=== PATIENT | male | born 1935 | race Caucasian/White ===

== ENCOUNTER 2018-05-13 10:05 | Emergency (ER) | payer OTHER ==
[~2018-05-13] VITALS: Ht 180.3 cm; Wt 93.0 kg
--- NOTE | 2018-05-13 11:46 | ED SKIN/ALLERGY COMPLAINT ---
History of Present Illness General Chief Complaint: Laceration Procedure Stated Complaint: CUT ON BOTTOM OF FOOT, RASH Source: patient Exam Limitations: no limitations Vital Signs & Intake/Output Vital Signs & Intake/Output Vital Signs Date Time Temp Pulse Resp B/P B/P Pulse O2 O2 Flow FiO2 Mean Ox Delivery Rate 05/13 1030 98.2 75 18 178/75 98 Room Air Allergies Coded Allergies: No Known Allergies (05/13/18) Triage Note: 82 YO MALE TO TRIAGE FOR EVAL OF L LEG LACERATION. STATES ON LABOR DAY HE WAS CARRYING A BAG WITH BOTTLES IN IT AND THE BAG BROKE AND A GLASS BOTTLE CAME OUT AND CUT HIS LEG. NOTED WITH ?RASH AROUND LACERATION SITE. UNSURE OF LAST TETANUS. Triage Nurses Notes Reviewed? yes HPI: 82 YEAR OLD MALE WITH NO MEDICAL HISTORY PRESENTS WITH PRIOR LACERATION A FEW WEEKS AGO FROM GLASS THAT CAME THROUGH A BAG. NOW THE AREAS HAS A VERY RED RASH. DOES NOT ITTCH. NO FEVER. HAD BEEN USING HYDROGEN PEROXIDE AND SILVADENE WELL WRAPS WITH MINIMAL RELIEF. PATIENT DOES NOT COMPLAIN OF ANY ISSUES SUCH PAIN, FEVER, ITCHING. (Jenny Chaidez PA-C) Reconcile Medications Hydrocortisone 1 % CREAM..G. 1 DEACON TOP BID RASH apply to affected area(s) (Jalen MURDOCK,[facility]) Past History Travel History Traveled to [place] past 21 day No Medical History Any Pertinent Medical History? 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 No (Jenny Chaidez PA-C) Review of Systems Review of Systems Constitutional: Denies: no symptoms, see HPI. EENTM: Denies: no symptoms. Respiratory: Denies: no symptoms. Cardiovascular: Denies: no symptoms. GI: Denies: no symptoms. Skin: Reports: lesions, rash. Neurological/Psychological: Denies: no symptoms. Hematologic/Endocrine: Denies: no symptoms. Immunologic/Allergic: Denies: no symptoms. (Jenny Chaidez PA-C) Physical Exam Physical Exam General Appearance: well developed/nourished, no apparent distress, alert, awake Head: atraumatic, normal appearance Skin: rash Skin Problem Location: lower extremities Skin Problem Character: lesion, linear, papules, rash (Dm CARPIO,Jenny) Progress Differential Diagnosis: allergic reaction, drug reaction Plan of Care: HYDROCORTISONE CREAM WILL BE RX'D FOR DERMATITIS. 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 RETURN TO ER IF WORSENS. (Jenny Chaidez PA-C) Departure Departure Disposition: HOME OR SELF CARE Condition: Stable Clinical Impression Primary Impression: Dermatitis Referrals: Patient Has No Primary Care Dr (PCP/Family) Additional Instructions: RETURN TO ER IF RASH WORSENS OR IF WOUND BEGINS TO DRAIN. FOLLOW UP WITH PCP IN 1-2 WEEKS. CONTINUE HYDROCORTISONE RX DIRECTED Departure Forms: Customer Survey General Discharge Information Prescriptions: Current Visit Scripts Hydrocortisone 1 DEACON TOP BID #30 GM apply to affected area(s) (Jenny Chaidez PA-C) PA/TONGER Co-Sign Statement Statement: ED Attending supervision documentation- [] I saw and evaluated the patient. I have also reviewed all the pertinent lab results and diagnostic results. I agree with the findings and the plan of care as documented in the PA's/TONGER's documentation. [x] I have reviewed the ED Record and agree with the PA's/TONGER's documentation. [] Additions or exceptions (if any) to the PAs/TONGER's note and plan are summarized below: [] (Jalen MURDOCK,[facility])
[2018-05-13] MEDS ORDERED: HYDROCORTISO453.6 G1 TOP (11:54)
[2018-05-13 12:09] VITALS: BP 168/77
== END 2018-05-13 12:09 ==
LOC: ERH 10:05
DX: L30.9 Dermatitis, unspecified (principal)